=== PATIENT | male | born 1975 | race Caucasian/White ===

== ENCOUNTER 2023-01-09 02:57 | Emergency (ER) | payer BC, OTHER ==
[2023-01-09 03:34] LABS: BASOPHILS ABSOLUTE AUTO 0.04 10^3/uL (0.00-0.10); BASOPHILS PERCENT AUTO 0.5 % (0.0-1.0); EOSINOPHILS ABSOLUTE AUTO 0.26 10^3/uL (0.10-0.30); EOSINOPHILS PERCENT AUTO 3.2 % (1.0-3.0); HEMATOCRIT 42.8 % (40.0-52.0); HEMOGLOBIN 14.9 g/dL (13.0-17.0); IMMATURE GRAN ABSOLUTE AUTO 0.01 10^3/uL (0.00-0.50); IMMATURE GRAN PERCENT AUTO 0.1 % (0.0-5.0); LYMPHOCYTES PERCENT AUTO 27.3 % (20.0-40.0); MEAN CORPUSCULAR HEMOGLOBIN 30.5 pg (27.0-31.0); MEAN CORPUSCULAR HGB CONC 34.8 g/dL (32.0-36.0); MEAN CORPUSCULAR VOLUME 87.7 fL (82.0-92.0); MEAN PLATELET VOLUME 10.1 fL (7.4-10.4); MONOCYTES ABSOLUTE AUTO 0.66 10^3/uL (0.10-0.80); MONOCYTES PERCENT AUTO 8.2 % (2.0-8.0); NEUTROPHILS ABSOLUTE AUTO 4.88 10^3/uL (2.50-7.00); NEUTROPHILS PERCENT AUTO 60.7 % (50.0-70.0); PLATELET COUNT,PLT 244 10^3/uL (150-400); RED BLOOD CELL COUNT 4.88 10^6/uL (4.50-6.00); RED CELL DISTRIBUTION WIDTH 12.2 % (11.5-14.5); WHITE BLOOD CELL COUNT,WBC 8.05 10^3/uL (5.00-10.00)
[2023-01-09 03:52] LABS: ALANINE AMINOTRANSFERASE,ALT 43 U/L (14-63); ALBUMIN 3.71 g/dL (3.40-5.00); ALKALINE PHOSPHATASE 109 U/L (46-116); ANION GAP 14.1 mmol/L (5-15); ASPARTATE AMNIOTRANSFERASE,AST 18 U/L (15-37); BILIRUBIN TOTAL 0.4 mg/dL (0.2-1.0); BLOOD UREA NITROGEN,BUN 13 mg/dL (7-18); CARBON DIOXIDE,CO2 26.2 mmol/L (21.0-32.0); CHLORIDE,CL 103 mmol/L (98-107); CREATININE 0.82 mg/dL (0.51-1.17); EST CRCL DRUG DOSING (CG) 118.61 mL/min; ESTIMATED GFR 109 mL/min (>=60); GLUCOSE RANDOM 124 mg/dL (70-140); POTASSIUM,K 3.3 mmol/L (3.5-5.1); PROTEIN TOTAL,TP 6.8 g/dL (6.4-8.2); SODIUM,NA 140 mmol/L (136-145)
[2023-01-09 03:53] LABS: C-REACTIVE PROTEIN < 0.4 mg/dL (0.0-0.9)
[2023-01-09] MEDS: hydrALAZINE 20 MG/ML SDV IVPUSH ONE (03:59)
[2023-01-09 04:31] VITALS: BP 163/96; PULSE 91
[2023-01-09] MEDS ORDERED: Sodium Chloride 0.9% 10 ML Syringe FLUSH PRN (04:39)
== END 2023-01-09 04:45 | disposition home or self-care (01) ==
LOC: KA.ED 02:57
DX: I10 Essential (primary) hypertension (principal); R01.1 Cardiac murmur, unspecified; M25.511 Pain in right shoulder; E78.00 Pure hypercholesterolemia, unspecified; Z79.899 Other long term (current) drug therapy
CPT/HCPCS: 36415; 80053; 84484; 85025; 86140; 93005; 93010; 96374; 99283-25; 99284; J0360